=== PATIENT | female | born 1935 | race Caucasian/White ===

== ENCOUNTER 2020-12-19 18:17 | Inpatient (IN) | payer MEDICARE, OTHER ==
[2020-12-19] MEDS ORDERED: Morphine 4 MG/ML VIAL ONE ×2 (18:43→20:05)
[2020-12-19] MEDS ORDERED: Ondansetron PF 4 MG/2 ML Vial ONE (18:43)
[2020-12-19 19:16] LABS: #Eosinphils 0.2 thou/uL (0.0-0.7); #Lymphocytes 1.8 thou/uL (1.20-3.40); #Monocytes 0.7 thou/uL (0.11-0.59); #Neutrophils 16.5 thou/uL (1.40-6.50); %Basophils 0.2 % (0.0-1.0); %Eosinophils 1.2 % (0.0-10.0); %Lymphocytes 9.4 % (21.0-51.0); %Monocytes 3.8 % (0.0-10.0); %Neutrophils 85.5 % (42.0-75.0); Hemoglobin 10.9 g/dL (12.0-16.0); Mean Corpuscular HGB CONC 32.6 g/dL (32.0-36.0); Mean Corpuscular Volume 85.7 fL (78.0-98.0); Mean Platelet Volume 7.3 fL (7.4-10.4); Platelet Count 467 thou/uL (130-400); RBC Distribution Width 13.7 % (11.5-14.5); Red Blood Cell (RBC) Count 3.91 mill/uL (4.20-5.40); White Blood Cell (WBC) Count 19.4 thou/uL (4.8-10.8)
--- NOTE | 2020-12-19 19:17 | RAD ---
CHEST ONE VIEW: History: Pre operative evaluation FINDINGS: Heart size is normal. The lungs show no acute process. No significant pleural effusion. Evidence for a hiatal hernia. IMPRESSION: No significant acute intrathoracic disease. Evidence for a hiatal hernia. POS: RRE
[2020-12-19 19:25] LABS: Prothrombin Time 13.9 sec (12.0-14.7)
--- NOTE | 2020-12-19 19:25 | RAD ---
TWO VIEWS RIGHT FEMUR: History: Slip and fall, right leg pain. FINDINGS: Two views of the right femur shows an intertrochanteric right femur fracture with surrounding soft ti ssue swelling. No other fractures are appreciated. No degenerative changes are seen in the right hip. IMPRESSION: Intertrochanteric right femur fracture. POS: EAA
[2020-12-19 19:26] LABS: PTT 27.7 sec (22.9-36.1)
--- NOTE | 2020-12-19 19:26 | RAD ---
AP PELVIS ONE VIEW: History: Injury from a slip and fall with right hip pain. FINDINGS: Slightly comminuted intertrochanteric fracture of the right hip with considerable foreshortening and varus deformity. Diffuse bony demineralization. IMPRESSION: Intertrochanteric fracture right hip with foreshortening and varus deformity. Bony demineralization. POS: RRE
[2020-12-19 19:36] LABS: ALT (SGPT) 17 U/L (8-55); AST (SGOT) 22 U/L (5-34); Albumin 3.9 g/dL (3.4-4.8); Alkaline Phosphatase 57 U/L (40-110); Anion Gap 16 mmol/L (10-20); BUN (Urea Nitrogen) 15 mg/dL (9.8-20.1); Bilirubin, Total 0.2 mg/dL (0.2-1.2); Calc. Creatinine Clearance 0 mL/min (70-130); Calcium 8.7 mg/dL (7.8-10.44); Carbon Dioxide 20 mmol/L (23-31); Chloride 107 mmol/L (98-107); Globulin 3.1 g/dL (2.4-3.5); Glucose 153 mg/dL (83-110); Potassium 4.1 mmol/L (3.5-5.1); Sodium 139 mmol/L (136-145)
[2020-12-19] MEDS ORDERED: Dextrose 50% Abboject 50 ML SYRINGE SLOW IVP PRN (19:46)
[2020-12-19] MEDS ORDERED: Ondansetron PF 4 MG/2 ML Vial IVP PRN (19:46)
[2020-12-19] MEDS ORDERED: hydrALAZINE 20 MG/ML VIAL SLOW IVP PRN (19:46)
[2020-12-19] MEDS ORDERED: Dextrose 5% in Water 1,000 ML IV PRN (19:46)
[2020-12-19] MEDS ORDERED: traMADol HCl 50 MG TAB PO PRN (19:52)
[2020-12-19] MEDS ORDERED: Ibuprofen 800 MG TAB PO PRN (19:52)
[2020-12-19] MEDS ORDERED: Sodium Chloride 0.9% 1,000 ML IV SCH ×2 (20:00→23:55)
[2020-12-19 20:07] LABS: Phosphorus 2.9 mg/dL (2.3-4.7)
[2020-12-19] MEDS ORDERED: Sodium Phosphate 30 MMOL in Sodium Chloride 0.9% 250 ML 250 ML IVPB SCH (21:30)
[2020-12-19] MEDS: Cyclobenzaprine 10 MG TAB PO PRN (22:33)
[2020-12-19] MEDS: Acetaminophen 500 MG TAB PO SCH (22:40)
[2020-12-19] MEDS: Famotidine 20 MG TAB PO SCH (22:40)
[2020-12-19] MEDS: Senokot S 8.6-50 MG TAB PO SCH (22:55)
[2020-12-19 23:16] VITALS: BMI 20.9
--- NOTE | 2020-12-19 23:35 | HP ---
CONSULTS: Orthopedic Surgery, Dr. Gu. PRIMARY CARE PHYSICIAN: Adán Good DO CHIEF COMPLAINT: Slipped and fell on the ice, right hip pain. HISTORY OF PRESENT ILLNESS: This is an 85-year-old female, who reports walking outside to turn off the water when she slipped and fell on ice. The patient complained of right hip pain. The patient did lie on the ground outside for approximately 40 minutes until someone found her. The patient denies any loss of consciousness or hitting her head. The patient denies any other injuries. The patient denies any recent cough, cold, fever, chills. The patient does report having a hacking dry cough for one year. The patient denies feeling weak, dizzy, having chest pain, or shortness of breath before falling. The patient lives at home alone and ambulates without any assistive devices. The patient was evaluated in the emergency room and found to have a right intertrochanteric femur fracture. The patient was given morphine for pain in the emergency room, which made her slightly hypotensive. The patient's vital signs are currently stable. PAST MEDICAL HISTORY: Hyperlipidemia. The patient denies having hypertension, but is taking losartan. Diverticulitis. PAST SURGICAL HISTORY: Hysterectomy, left shoulder repair, bilateral knee surgery. SOCIAL HISTORY: Denies tobacco use, denies alcohol use, denies illicit drug use. Patient lives at home alone. ALLERGIES: CODEINE. CURRENT MEDICATIONS: 1. Losartan 100 mg daily. 2. Aspirin 81 mg daily. FAMILY HISTORY: Not significant for patient's history. REVIEW OF SYSTEMS: A 10-point review of systems is negative unless otherwise indicated in the above HPI. OBJECTIVE: VITAL SIGNS: Blood pressure 117/72, pulse 94, respirations 20, SpO2 of 97% on room air, temperature 97.7. GENERAL: Well-appearing elderly female, awake, alert, in no distress. HEENT: Head is atraumatic, normocephalic. Normal nares. Mucous membranes slightly dry. Pupils are equal bilateral. No cervical spine tenderness, normal range of motion of neck. RESPIRATORY: Good inspiratory and expiratory effort, bilateral breath sounds clear. No wheezing, rales, or rhonchi. CARDIOVASCULAR: Regular rate regular rhythm. No murmurs. No pedal edema. ABDOMEN: Soft, nontender, nondistended. EXTREMITIES: Neurovascularly intact x4. Right lower extremity externally rotated. Strength 5/5, plantar flexion and dorsiflexion. NEUROLOGIC: No focal deficits. GCS 15. SKIN: Warm, dry. Normal color. LABORATORY DATA: WBC 19.4, RBC 3.91, hemoglobin 10.9, hematocrit 33.5, platelets 467. PT 13.9, INR 1.0, APTT 27.7. Sodium 139, potassium 4.1, chloride 107, carbon dioxide 20, BUN 15, creatinine 0.88, estimated GFR 61, glucose 153, calcium 8.7, phosphorus 2.9, magnesium 2.0, AST 22, ALT 17, alkaline phosphatase 57, BNP 145.0, albumin 3.9. DIAGNOSTICS: 1. 12-lead EKG, sinus rhythm with PACs. No ST-segment elevation or T-wave inversion. 2. Right femur x-ray. Impression: Intertrochanteric right femur fracture. 3. Pelvis x-ray. Impression: Intertrochanteric fracture of right hip with foreshortening and large deformity. Bony demineralization. 4. Chest x-ray. Impression: No significant acute intrathoracic disease. Evidence for a hiatal hernia. ASSESSMENT: 1. Mechanical fall with no loss of consciousness. 2. Right intertrochanteric femur fracture. 3. History of hyperlipidemia and hypertension. PLAN: Admit to the surgical floor. N.p.o. after midnight with maintenance IV fluids, normal saline 75 mL an hour. Orthopedic Surgery, Dr. Gu plans to take the patient to the OR tomorrow for repair. Pain control. PT and OT to evaluate and treat postop. We will place a post-acute screen for inpatient rehab. Once the patient's hemoglobin is stable postop, patient will be placed on chemical VTE prophylaxis. The plan was discussed with the patient, who agrees. The plan will be discussed with the attending. Job ID: [id number]
[2020-12-20] MEDS: traMADol HCl 50 MG TAB PO PRN (00:34)
[2020-12-20] MEDS ORDERED: Morphine 4 MG/ML VIAL ONE (08:13)
[2020-12-20] MEDS: Morphine 2 MG/ML VIAL SLOW IVP PRN ×2 (08:15→10:10)
[2020-12-20] MEDS ORDERED: Fentanyl 100 MCG/2 ML VIAL ONE ×2 (11:46→13:28)
[2020-12-20] MEDS ORDERED: Neomycin-Polymyxin 1 ML AMP ONE (12:45)
[2020-12-20] MEDS ORDERED: Bupivacaine PF 0.5% 30 ML VIAL ONE (12:45)
[2020-12-20] MEDS ORDERED: EPINEPHrine 1 MG/ML AMP ONE (12:45)
[2020-12-20 13:39] LABS: SARS-CoV-2 PCR by NAA Not Detected (NotDetected)
[2020-12-20] MEDS ORDERED: Lidocaine 1% PF 5 ML VIAL ONE ×2 (14:30)
[2020-12-20] MEDS ORDERED: Ondansetron PF 4 MG/2 ML Vial ONE ×2 (14:30→15:30)
[2020-12-20] MEDS ORDERED: Glycopyrrolate 0.2 MG/ML 5 ML SYRINGE ONE (14:30)
[2020-12-20] MEDS ORDERED: Dexamethasone 20 MG/5 ML VIAL ONE (14:30)
[2020-12-20] MEDS ORDERED: Rocuronium Bromide 10 MG/ML (10ML VIAL) ONE (14:30)
[2020-12-20] MEDS ORDERED: PROPOFOL 200 MG/20 ML VIAL ONE (14:30)
[2020-12-20] MEDS ORDERED: PHENYLEPHRINE-NS 100 MCG/ML 10 ML SYRINGE ONE (14:30)
[2020-12-20] MEDS ORDERED: Promethazine HCl 25 MG/ML VIAL ONE (14:31)
[2020-12-20] MEDS ORDERED: Promethazine HCl 25 MG/ML VIAL IM PRN (14:32)
[2020-12-20] MEDS ORDERED: Promethazine HCl 25 MG/ML VIAL SLOW IVP PRN (14:32)
[2020-12-20] MEDS ORDERED: Cepastat Lozenges 1 LOZ PO PRN (14:35)
[2020-12-20] MEDS ORDERED: Bisacodyl 10 MG SUPP PR PRN (14:35)
[2020-12-20] MEDS ORDERED: Milk Of Magnesia 30 ML UDCUP PO PRN (14:35)
[2020-12-20] MEDS ORDERED: Ondansetron ODT 4 MG TAB PO PRN (14:35)
[2020-12-20 14:37] LABS: Anion Gap 16 mmol/L (10-20); BUN (Urea Nitrogen) 16 mg/dL (9.8-20.1); Calc. Creatinine Clearance 45 mL/min (70-130); Calcium 7.9 mg/dL (7.8-10.44); Carbon Dioxide 18 mmol/L (23-31); Chloride 108 mmol/L (98-107); Glucose 100 mg/dL (83-110); Phosphorus 6.4 mg/dL (2.3-4.7); Potassium 3.9 mmol/L (3.5-5.1); Sodium 138 mmol/L (136-145)
[2020-12-20] MEDS ORDERED: HYDROcodone/Acetaminophen 10/325 mg Tablet PO PRN (14:38)
--- NOTE | 2020-12-20 14:49 | OP ---
DATE OF PROCEDURE: 12/20/2020 PREOPERATIVE DIAGNOSIS: Comminuted intertrochanteric fracture of the right hip. POSTOPERATIVE DIAGNOSIS: Comminuted intertrochanteric fracture of the right hip. PROCEDURE PERFORMED: Open reduction and internal fixation of intertrochanteric fracture of the right hip. ANESTHESIA: General. DESCRIPTION OF PROCEDURE: The patient was given preoperative IV antibiotics, taken to the operating room, placed in the supine position. Satisfactory general anesthesia was performed. The patient was then placed on the fracture table. All bony prominences were well padded and traction was applied to the right lower extremity. C-arm verified good reduction of the intertrochanteric fracture in both AP, lateral, and multiple oblique views. Lateral aspect of the right hip and thigh were sterilely prepped and draped in usual fashion. A 2-inch incision was made proximal to the greater trochanter, and using fluoroscopy, a guidewire was placed through the greater trochanter into the proximal femur. It was then over-reamed and a 10 mm trochanteric fixation nail that was 170 mm in length was inserted into the proximal femur down to the appropriate level. Through a separate 2-inch incision on the lateral aspect of the thigh using the guide still attached to the nail, drill was placed through the rica into the femoral neck and head. Proper placement again was achieved using the C-arm and the appropriate sized nail was measured at 95 mm. The lateral cortex was over-reamed and a 95 mm fenestrated helical blade was inserted into the femoral neck and head and also into the proximal aspect of the rica. Locking mechanism was used to lock the blade down to the rica. Through the same incision on the lateral aspect of the thigh, a 5.0 locking screw was placed in the distal aspect of the rica and into the femur. This provided good reduction and good stabilization of the fracture. The two wounds were then irrigated with antibiotic solution, closed using #2 Vicryl for the deeper tissue, 0 Vicryl for the fat and subcutaneous tissue, and skin was closed with skin moy. Sterile dressing was applied. The patient was taken off the fracture table. She was awakened, extubated, and transferred to recovery room in stable condition. ESTIMATED BLOOD LOSS: 100 mL. COMPLICATIONS: None. Job ID: [id number]
--- NOTE | 2020-12-20 14:52 | CON ---
DATE OF CONSULTATION: 12/20/2020 HISTORY OF PRESENT ILLNESS: The patient is an 85-year-old female who was walking outside to make sure that her water was dripping because of the freeze and she slipped and fell on some ice, complained immediate pain in the right hip area. The patient eventually was brought to the emergency room and x-rays revealed a comminuted intertrochanteric fracture of the right hip. PAST MEDICAL HISTORY: Medical illnesses; hyperlipidemia, diverticulitis. PAST SURGICAL HISTORY: Hysterectomy, left shoulder surgery, bilateral knee surgery. ALLERGIES: CODEINE. CURRENT MEDICATION: 1. Losartan. 2. Baby aspirin daily. SOCIAL HISTORY: The patient lives at home alone. She does not use tobacco or alcohol. PHYSICAL EXAMINATION: GENERAL: The patient is a pleasant female, alert and oriented x3. VITAL SIGNS: The patient is afebrile. Vital signs are stable. EXTREMITIES: Examination of the upper extremities shows the patient is able to move all the joints in the upper extremities without pain. She has good range of motion of the left hip, knee, and ankle with no pain. The patient is unable to move the right hip without significant pain. Right lower extremity is shortened and externally rotated. It is neurovascularly intact. IMAGING STUDIES: X-ray showed displaced comminuted intertrochanteric fracture of the right proximal femur. IMPRESSION: 1. Comminuted displaced intertrochanteric fracture of the right hip. 2. Hyperlipidemia. 3. Hypertension. PLAN: The patient will require stabilization of the fracture. We will plan on performing open reduction and internal fixation of the right hip utilizing a trochanteric fixation nail. The patient's questions were answered and she would like to proceed with surgery. Job ID: [id number]
[2020-12-20] MEDS: Polyethylene Glycol 3350 17 GM Packet PO SCH (15:08)
[2020-12-20] MEDS: Famotidine 20 MG TAB PO SCH ×2 (15:08→21:36)
[2020-12-20] MEDS: Acetaminophen 500 MG TAB PO SCH (15:11)
[2020-12-20] MEDS: Senokot S 8.6-50 MG TAB PO SCH ×2 (15:12→21:36)
[2020-12-20] MEDS ORDERED: Scopolamine 1.5 mg/72 hour Patch ONE (15:30)
[2020-12-20] MEDS: Ondansetron PF 4 MG/2 ML Vial IVP PRN (16:12)
[2020-12-20] MEDS ORDERED: Ketorolac Tromethamine 30 MG/ML VIAL IVP SCH (18:00)
[2020-12-20 18:25] LABS: Hemoglobin 9.2 g/dL (12.0-16.0); Mean Corpuscular HGB CONC 32.1 g/dL (32.0-36.0); Mean Corpuscular Hemoglobin 27.9 pg (27.0-31.0); Mean Corpuscular Volume 86.9 fL (78.0-98.0); Mean Platelet Volume 7.7 fL (7.4-10.4); Platelet Count 332 thou/uL (130-400); Red Blood Cell (RBC) Count 3.28 mill/uL (4.20-5.40); White Blood Cell (WBC) Count 8.5 thou/uL (4.8-10.8)
[2020-12-20 18:26] LABS: Band 7 % (5-11); Lymphocytes 20 % (21-51); MDiff Complete? YES; Neutrophil 68 % (42-75); Platelet Morphology Comment Appears Adequate; Polychromasia SLIGHT = 2-3 cells (100X) (0-2/hpf); Reactive Lymphocytes 5 % (0-10)
--- NOTE | 2020-12-20 18:49 | RAD ---
RIGHT HIP TWO VIEWS: INDICATIONS: Imaging during open reduction and internal fixation, right hip. TECHNIQUE: Two fluoroscopic images are presented from the OR. FINDINGS: These images demonstrate an intramedullary rica and pin transfixing the right hip. POS: AGW
[2020-12-20 19:10] LABS: Anion Gap 14 mmol/L (10-20); BUN (Urea Nitrogen) 14 mg/dL (9.8-20.1); Calc. Creatinine Clearance 46 mL/min (70-130); Calcium 7.9 mg/dL (7.8-10.44); Carbon Dioxide 19 mmol/L (23-31); Chloride 109 mmol/L (98-107); Glucose 135 mg/dL (83-110); Magnesium 1.8 mg/dL (1.6-2.6); Phosphorus 3.1 mg/dL (2.3-4.7); Potassium 4.2 mmol/L (3.5-5.1); Sodium 138 mmol/L (136-145)
[2020-12-20] MEDS: Ferrous Gluconate 324 MG TAB PO SCH (21:36)
[2020-12-20] MEDS: Cyclobenzaprine 10 MG TAB PO PRN (21:37)
[2020-12-20] MEDS: Aspirin 81 mg Enteric Coated Tablet PO SCH (21:37)
[2020-12-20] MEDS: CEFAZOLIN 2 GM in Premix Bag 1 BAG IVPB SCH (21:38)
[2020-12-21 05:05] LABS: Hemoglobin 7.9 g/dL (12.0-16.0); Mean Corpuscular HGB CONC 33.1 g/dL (32.0-36.0); Mean Corpuscular Hemoglobin 28.7 pg (27.0-31.0); Mean Corpuscular Volume 86.9 fL (78.0-98.0); Mean Platelet Volume 7.6 fL (7.4-10.4); Platelet Count 292 thou/uL (130-400); RBC Distribution Width 13.6 % (11.5-14.5); Red Blood Cell (RBC) Count 2.75 mill/uL (4.20-5.40); White Blood Cell (WBC) Count 10.9 thou/uL (4.8-10.8)
[2020-12-21 05:06] LABS: #Lymphocytes 1.1 thou/uL (1.20-3.40); #Monocytes 1.2 thou/uL (0.11-0.59); #Neutrophils 8.6 thou/uL (1.40-6.50); %Basophils 0.1 % (0.0-1.0); %Lymphocytes 10.4 % (21.0-51.0); %Monocytes 11.2 % (0.0-10.0); %Neutrophils 78.4 % (42.0-75.0); Hemoglobin 7.8 g/dL (12.0-16.0); Mean Corpuscular HGB CONC 32.5 g/dL (32.0-36.0); Mean Corpuscular Hemoglobin 27.9 pg (27.0-31.0); Mean Corpuscular Volume 85.7 fL (78.0-98.0); Mean Platelet Volume 7.6 fL (7.4-10.4); Platelet Count 307 thou/uL (130-400); RBC Distribution Width 13.5 % (11.5-14.5); Red Blood Cell (RBC) Count 2.78 mill/uL (4.20-5.40)
[2020-12-21] MEDS: CEFAZOLIN 2 GM in Premix Bag 1 BAG IVPB SCH (05:47)
--- NOTE | 2020-12-21 06:03 | PRG ---
DATE OF SERVICE: 12/20/2020 SUBJECTIVE: Ms. Ca is an 85-year-old female, brought into the emergency department yesterday for a right IT fracture. The patient was brought to the OR this morning. Seen during afternoon rounds, resting comfortably in bed. Postop day 0 from ORIF right IT fracture. The patient's pain was well controlled. Started a diet this evening. PT/OT has not had a chance to work with the patient as of now. PHYSICAL EXAMINATION: VITAL SIGNS: Temperature 97.5, pulse 71, respiratory rate is 21, O2 saturation on room air 95, and blood pressure 110/65. GENERAL: Resting in bed, covered in blankets. CARDIAC: Regular rate and rhythm. LUNGS: No acute distress. Speaking full sentences. ABDOMEN: Soft, nontender. MSK: Right lower extremity incision intact. No strikethrough through bandage. The patient has good sensation in right and left lower extremities. ASSESSMENT: 1. Mechanical fall. 2. Status post right intertrochanteric fracture. 3. History of hyperlipidemia and hypertension. PLAN: Status postop right IT ORIF. Start on regular diet. Discussed disposition planning with the patient today. The patient has a supportive family with daughter living nearby. The patient would like to go home if possible. PT/OT will assess the patient's further needs before the time of discharge. Job ID: [id number]
[2020-12-21] MEDS: Acetaminophen 500 MG TAB PO SCH ×3 (07:17→20:22)
[2020-12-21] MEDS: Senokot S 8.6-50 MG TAB PO SCH ×2 (08:36→20:22)
[2020-12-21] MEDS: HYDROcodone/Acetaminophen 10/325 mg Tablet PO PRN ×2 (08:36→20:23)
[2020-12-21] MEDS: Rosuvastatin 5 MG TAB PO SCH (08:37)
[2020-12-21] MEDS: Famotidine 20 MG TAB PO SCH ×2 (08:38→20:22)
[2020-12-21] MEDS: Ferrous Gluconate 324 MG TAB PO SCH ×2 (08:38→20:23)
[2020-12-21] MEDS: Polyethylene Glycol 3350 17 GM Packet PO SCH (08:39)
[2020-12-21] MEDS: Multivitamin W/ Minerals 1 TAB PO SCH (08:39)
[2020-12-21] MEDS: Aspirin 81 mg Enteric Coated Tablet PO SCH ×2 (08:53→20:22)
[2020-12-21] MEDS ORDERED: Aspirin 81 mg Enteric Coated Tablet PO SCH (09:00)
--- NOTE | 2020-12-21 10:06 | PRG ---
DATE OF SERVICE: 12/21/2020 SUBJECTIVE: Ms. Ca underwent ORIF of a right intertrochanteric fracture. The patient has good pain control. OBJECTIVE: The patient has been afebrile. Blood pressure 139/58, O2 saturation 93% on room air. LABORATORY DATA: Her hemoglobin this morning is 7.8, hematocrit 23.9. PLAN: The H and H will be rechecked tomorrow. She will work with Physical and Occupational Therapy. Case Management is involved on placement after hospitalization. Job ID: [id number]
[2020-12-21] MEDS ORDERED: Morphine 2 MG/ML VIAL SLOW IVP SCH (11:00)
[2020-12-21] MEDS: traMADol HCl 50 MG TAB PO PRN (11:15)
[2020-12-21] MEDS ORDERED: Magnesium 2 GM/50 ML 2 GM in Premix Bag 1 BAG IVPB SCH (19:00)
--- NOTE | 2020-12-21 21:25 | PRG ---
DATE OF SERVICE: 12/22/2020 SUBJECTIVE: Ms. Ca is an 85-year-old female patient, status post fall, OR on 12/20 for repair of the right intertrochanteric fracture ORIF. Patient working with PT during morning rounds, no acute events over night. H&H7.2/22.0. Patient transfused 1 unit PRBC today OBJECTIVE: VITAL SIGNS: Stable. GENERAL: No acute distress, sitting upright in bed working with PT HEENT: Normocephalic, atraumatic. LUNGS: No accessory muscle use. Speaking in full sentences. Equal rise and fall. MSK: Sensation intact in bilateral lower extremities LABORATORY FINDINGS: Imaging, no new images. ASSESSMENT: 1. Ground level fall. 2. Status post open reduction and internal fixation right intertrochanteric fracture. 3 History HLD, HTN PLAN OF TREATMENT: The patient is recovering well on the surgical floor. Working with PT this morning. Pt restarted on all home medications. Patient excepted to [facility], pending bed. The patient was seen with Dr. Tate during morning rounds and agrees with plan and assessment. Job ID: [id number] [facility]
[2020-12-22] MEDS: traMADol HCl 50 MG TAB PO PRN ×3 (00:54→23:54)
[2020-12-22] MEDS: Acetaminophen 500 MG TAB PO SCH ×4 (01:00→20:54)
[2020-12-22] MEDS: HYDROcodone/Acetaminophen 10/325 mg Tablet PO PRN (06:00)
[2020-12-22 06:19] LABS: Hemoglobin 7.2 g/dL (12.0-16.0); Mean Corpuscular HGB CONC 32.9 g/dL (32.0-36.0); Mean Corpuscular Hemoglobin 28.5 pg (27.0-31.0); Mean Corpuscular Volume 86.7 fL (78.0-98.0); Mean Platelet Volume 7.3 fL (7.4-10.4); Platelet Count 307 thou/uL (130-400); RBC Distribution Width 13.6 % (11.5-14.5); Red Blood Cell (RBC) Count 2.54 mill/uL (4.20-5.40); White Blood Cell (WBC) Count 10.3 thou/uL (4.8-10.8)
[2020-12-22] MEDS: Aspirin 81 mg Enteric Coated Tablet PO SCH ×2 (09:27→20:54)
[2020-12-22] MEDS: Senokot S 8.6-50 MG TAB PO SCH ×2 (09:28→20:54)
[2020-12-22] MEDS: Multivitamin W/ Minerals 1 TAB PO SCH (09:29)
[2020-12-22] MEDS: Polyethylene Glycol 3350 17 GM Packet PO SCH (09:29)
[2020-12-22] MEDS: Rosuvastatin 5 MG TAB PO SCH (09:29)
[2020-12-22] MEDS: Ferrous Gluconate 324 MG TAB PO SCH ×2 (09:29→20:54)
[2020-12-22] MEDS: Famotidine 20 MG TAB PO SCH (10:05)
--- NOTE | 2020-12-22 13:00 | PRG ---
DATE OF SERVICE: 12/22/2020 SUBJECTIVE: Ms. Ca is 2 days, status post ORIF of intertrochanteric fracture of the right hip. The patient voices no concerns. OBJECTIVE: The patient has been afebrile. Blood pressure is 132/69. LABORATORY DATA: Hemoglobin this morning is 7.2. PLAN: The patient will continue with physical and occupational therapy as tolerated. Repeat H and H for tomorrow morning. Job ID: [id number]
[2020-12-22 15:04] LABS: Anion Gap 14 mmol/L (10-20); BUN (Urea Nitrogen) 13 mg/dL (9.8-20.1); Calc. Creatinine Clearance 49 mL/min (70-130); Calcium 8.4 mg/dL (7.8-10.44); Carbon Dioxide 22 mmol/L (23-31); Chloride 102 mmol/L (98-107); Glucose 112 mg/dL (83-110); Potassium 3.9 mmol/L (3.5-5.1); Sodium 134 mmol/L (136-145)
--- NOTE | 2020-12-22 17:45 | PQF ---
CLINICAL DOCUMENTATION CLARIFICATION FORM: Dear Adán Pro PA-C Date: 12/22/20 1730 Please exercise your independent, professional judgment in responding to the clarification form. Clinical indicators are provided on the bottom of this form for your review. Please check appropriate box(es): [] Acute blood loss anemia [ X ] Postoperative anemia related to acute blood loss [ ] Chronic Anemia: [ ] Blood loss [ ] Hemolytic [ ] Simple [ ] Due to Vitamin B12 Deficiency [ ] Other [ ] Anemia of Chronic Disease (please specify) [ ] Anemia due to Neoplasm: [ ] Primary [ ] Secondary [ ] Anemia due to (please choose): [ ] Due to Chemotherapy [ ] Due to Radiotherapy [ ] Due to Immunotherapy [ ] Other diagnosis [ ] Unable to determine In addition, please specify: Present on Admission (POA): [ ] Yes [ X] No [ ] Unable to determine For continuity of documentation, please document condition throughout progress notes and discharge summary. Thank You. To be completed by CDI/Coding staff for physician review: CLINICAL INDICATORS - SIGNS / SYMPTOMS / LABS / RESULTS AND LOCATION IN EMR Mechanical fall with no loss of consciousness, right intertrochanteric femur fracture. Once the patients hemoglobin is stable postop, patient will be placed on chemical VTE prophylaxis (Ponzio/H&P) 12/19 Her hemoglobin this morning is 7.8, hematocrit 23.9, the H&H will be rechecked tomorrow (Animas/PN) 12/22 HgB 10.9 9.2. > 7.9. > 7.8. > 7.2 RISK / RESULT AND LOCATION IN EMR Advanced age (85), ORIF intertrochanteric fracture of right hip ( 12/20/Riccardo) TREATMENTS / RESULTS AND LOCATION IN EMR Transfusion x 1 unit Leukoreduced RBC 12/22 Serial H&H (12/19 present) Thank you! CDS Signature: Marcia Rodriguez RN Phone #: [phone] Date/Time. 12/22/2020 This is a permanent part of the Medical Record [facility]
[2020-12-22] MEDS ORDERED: Ibuprofen 800 MG TAB PO PRN (23:59)
[2020-12-23] MEDS: Acetaminophen 500 MG TAB PO SCH ×4 (03:17→20:31)
[2020-12-23 05:48] LABS: #Basophils 0.1 thou/uL (0.0-0.2); #Eosinphils 0.5 thou/uL (0.0-0.7); #Lymphocytes 1.4 thou/uL (1.20-3.40); #Monocytes 1.1 thou/uL (0.11-0.59); #Neutrophils 9.3 thou/uL (1.40-6.50); %Basophils 0.4 % (0.0-1.0); %Eosinophils 4.2 % (0.0-10.0); %Lymphocytes 11.3 % (21.0-51.0); %Monocytes 9.1 % (0.0-10.0); Hemoglobin 8.3 g/dL (12.0-16.0); Mean Corpuscular HGB CONC 33.6 g/dL (32.0-36.0); Mean Corpuscular Hemoglobin 28.9 pg (27.0-31.0); Mean Platelet Volume 7.4 fL (7.4-10.4); Platelet Count 310 thou/uL (130-400); RBC Distribution Width 13.5 % (11.5-14.5); Red Blood Cell (RBC) Count 2.87 mill/uL (4.20-5.40); White Blood Cell (WBC) Count 12.4 thou/uL (4.8-10.8)
[2020-12-23 06:06] LABS: Phosphorus 2.6 mg/dL (2.3-4.7)
[2020-12-23 07:48] LABS: Anion Gap 16 mmol/L (10-20); BUN (Urea Nitrogen) 12 mg/dL (9.8-20.1); Calc. Creatinine Clearance 57 mL/min (70-130); Calcium 8.3 mg/dL (7.8-10.44); Carbon Dioxide 20 mmol/L (23-31); Chloride 102 mmol/L (98-107); Glucose 94 mg/dL (83-110); Potassium 3.9 mmol/L (3.5-5.1); Sodium 134 mmol/L (136-145)
[2020-12-23] MEDS: Rosuvastatin 5 MG TAB PO SCH (08:29)
[2020-12-23] MEDS: Senokot S 8.6-50 MG TAB PO SCH ×2 (08:29→20:32)
[2020-12-23] MEDS: Aspirin 81 mg Enteric Coated Tablet PO SCH ×2 (08:29→20:32)
[2020-12-23] MEDS: Polyethylene Glycol 3350 17 GM Packet PO SCH (08:29)
[2020-12-23] MEDS: Ferrous Gluconate 324 MG TAB PO SCH ×2 (08:29→20:31)
[2020-12-23] MEDS: Multivitamin W/ Minerals 1 TAB PO SCH (08:29)
[2020-12-23] MEDS: Ondansetron PF 4 MG/2 ML Vial IVP PRN (13:12)
[2020-12-23] MEDS: traMADol HCl 50 MG TAB PO PRN (14:35)
[2020-12-23 16:07] VITALS: BP 138/71; TEMP 98.1
--- NOTE | 2020-12-25 17:32 | EKG ---
Test Reason : EMERGENCY EXAM Blood Pressure : / mmHG Vent. Rate : 086 BPM Atrial Rate : 086 BPM P-R Int : 146 ms QRS Dur : 072 ms QT Int : 408 ms P-R-T Axes : 070 033 -68 degrees QTc Int : 488 ms Sinus rhythm with Premature supraventricular complexes Prolonged QT Abnormal ECG Confirmed by JUS PERKINS, OYLA ([id number]), video effects editor TORSTEN BRUCE ([id number]) on 12/25/2020 5:31:54 PM Referred By: Confirmed By:YOLA LUU MD
== END 2020-12-23 21:40 | DRG 481 ==
LOC: ERS 18:17 → SJJU 19:46
PROVIDERS: ADMIT Surgery; ATTEND Surgery
PROC: 0QS604Z Reposition Right Upper Femur with Internal Fixation Device, Open Approach (ICD-10-PCS; principal; 2020-12-20)
DX: S72.141A Displaced intertrochanteric fracture of right femur, initial encounter for closed fracture (principal); D62 Acute posthemorrhagic anemia; Z20.822 Contact with and (suspected) exposure to COVID-19; W01.0XXA Fall on same level from slipping, tripping and stumbling without subsequent striking against object, initial encounter; E78.5 Hyperlipidemia, unspecified; I10 Essential (primary) hypertension; Z90.710 Acquired absence of both cervix and uterus; Z88.5 Allergy status to narcotic agent; Z79.82 Long term (current) use of aspirin; Z79.899 Other long term (current) drug therapy
CPT/HCPCS: 36415; 36430; 71045; 72170; 76000; 80048; 80053; 83735; 83880; 84100; 85025; 85027; 85610; 85730; 86850; 86900; 86901; 87635; 93005; 96374; 96375; 96376; C1713; J0171; J0690; J1100; J2270; J2405; J2550; J2704; J3010; J3475; J7050; P9016; Q0162; S0020; U0003; U0005